=== PATIENT | female | born 1950 | race African-American/Black ===

== ENCOUNTER 2018-10-05 14:11 | Outpatient (CLI) | payer MEDICARE ==
[~2018-10-05] VITALS: Ht 165.1 cm; Wt 73.5 kg
[2018-10-05] MEDS ORDERED: NORVASC5 MG ORAL (16:01)
[2018-10-05] MEDS ORDERED: ELIQUIS5 MG PO (16:01)
--- NOTE | 2018-10-05 16:04 | GI Initial Consult Note ---
History of Present Illness General Date patient seen: Oct 05, 2018 Time patient seen: 15:59 Referring physician: PATI Reason for Consultation: Rectal bleeding Present Illness HPI This is a 68-year-old female patient presents today with complaint of occasional rectal bleeding for approximately 3 weeks. Denies any rectal pain. In addition, the patient states that she has occasional left-sided abdominal pain. Patient states that her last colonoscopy was performed in 2015, unsure of the results at this time. Denies any unintentional weight loss or changes in dietary habits. No signs of abuse or neglect. Patient is not fall risk. Home Meds Reported Medications Apixaban (ELIQUIS) 5 Mg Tablet, 5 MG PO, TAB 10/05/18 Amlodipine Besylate (Norvasc) 5 Mg Tablet, 5 MG ORAL DAILY, TAB 10/05/18 Allergies: Coded Allergies: Penicillins (Unverified Allergy, Severe, 10/05/18) Patient History History Provided By: Patient PM Narrative End-stage renal disease, Tuesday Hypertension Glaucoma Asthma Neck pain Atrial fibrillation past surgical history AV fistula placed in 2019 [facility] June 2018 at [facility] Social History: Reports: alcohol use - Occasional, other - Caffeine use Review of Systems All Other Systems: negative except mentioned in HPI Physical Exam Temperature 97.9 Blood pressure 124/60 Pulse 56 94% room air Height 5 5 Weight 162 pounds Sp02 EP Interpretation: reviewed, normal General Appearance: well appearing, no apparent distress, alert Head: normocephalic EENT: PERRL/EOMI, normal ENT inspection Neck: supple Respiratory: normal breath sounds, no respiratory distress Cardiovascular: normal rate Gastrointestinal: normal inspection, non tender, soft, normal bowel sounds, non -distended Rectal: deferred Genitourinary: no CVA tenderness Musculoskeletal: normal inspection, back normal Neurologic: normal inspection, alert, oriented x3, responsive Psychiatric: normal inspection, judgement/insight normal, memory normal Skin: normal inspection, normal color, no rash, warm/dry, palpation normal, well hydrated Lymphatic: normal inspection, no adenopathy GI: Plan Problems: (1) Hemorrhoids (2) End stage renal disease (3) Hypertension (4) Glaucoma (5) Asthma (6) Back pain (7) A-fib Plan EGD/colonoscopy to be scheduled Wednesday, October 10, 2018 patient is on Eliquis , must be discontinued for minimum 24 hours. - CLD & (Nulytely/Suprep/Movi-Prep) prep instructions given and acknowledged by patient. - NPO @ [place] day prior procedure explained. -The patient is on Eliquis, must be discontinued for approximately 24 hours prior procedure. Will follow with additional recs post procedure. Seen with Dr. Delcid. Thank you for this patient referral. The patient was seen and examined at bedside and all new and available data was reviewed in the patients chart. I agree with the above findings, impression and plan. (Patient seen earlier today. Signature stamp does not reflect patient encounter time.). - MD Elena Rodriguez,[facility] FINANCIAL INVESTMENT ADVISER Oct 05, 2018 16:04
[2018-10-05 16:30] VITALS: BP 124/60
--- NOTE | 2018-10-05 16:47 | NUR ---
Pt reported she fell on the ground between the parking lot and our building. mentioned she fell forward and put her both hand on the ground. denies any pain in joints or headache. As long as she recalls she did not lose any consciousness. no bruises found. Addendum: 10/05/18 at 1656 by RAMYA ANGELA Amended: Links added.
[2018-10-05] MEDS ORDERED: FUROSEMIDE80 M1 ORAL (17:01)
[2018-10-05] MEDS ORDERED: AMIODARONE HCL100 MG ORAL (17:01)
[2018-10-05] MEDS ORDERED: AMIODARONE HCL400 M1 ORAL (17:01)
[2018-10-05] MEDS ORDERED: NORVASC2.5 MG ORAL (17:01)
[2018-10-05] MEDS ORDERED: PROTONIX40 MG ORAL (17:01)
[2018-10-05] MEDS ORDERED: SPIRONOLACTONE25 MG ORAL (17:01)
[2018-10-05] MEDS ORDERED: AVAPRO150 MG ORAL (17:01)
[2018-10-05] MEDS ORDERED: GABAPENTIN300 MG ORAL (17:01)
[2018-10-05] MEDS ORDERED: ATORVASTATIN CA20 MG ORAL (17:01)
[2018-10-05] MEDS ORDERED: XARELTO10 MG ORAL (17:01)
[2018-10-05] MEDS ORDERED: ASPIRIN EC81 MG ORAL (17:01)
[2018-10-05] MEDS ORDERED: METFORMIN HCL1000 M1 ORAL (17:01)
== END 2018-10-05 16:11 | disposition home or self-care (01) ==
LOC: PAN 14:11
DX: K64.9 Unspecified hemorrhoids (principal); R10.9 Unspecified abdominal pain; I12.0 Hypertensive chronic kidney disease with stage 5 chronic kidney disease or end stage renal disease; N18.6 End stage renal disease; H40.9 Unspecified glaucoma; J45.909 Unspecified asthma, uncomplicated; M54.9 Dorsalgia, unspecified; I48.91 Unspecified atrial fibrillation

== ENCOUNTER 2018-10-10 09:52 | Day surgery (SDC) | payer MEDICARE ==
[2018-10-10] VITALS (8 sets, daily range): BP systolic 110–154; BP diastolic 52–61
[~2018-10-10] VITALS: Ht 165.1 cm; Wt 70.8 kg
[~2018-10-10 09:52] MED LIST: AMIODARONE HCL100 MG ORAL; AMIODARONE HCL400 M1 ORAL; ASPIRIN EC81 MG ORAL; ATORVASTATIN CA20 MG ORAL; AVAPRO150 MG ORAL; ELIQUIS5 MG PO; FUROSEMIDE80 M1 ORAL; GABAPENTIN300 MG ORAL; METFORMIN HCL1000 M1 ORAL; NORVASC2.5 MG ORAL; NORVASC5 MG ORAL; PROTONIX40 MG ORAL; SPIRONOLACTONE25 MG ORAL; XARELTO10 MG ORAL
[2018-10-10 10:49] LABS: BASOPHILS % (AUTO) 1.3 % (0.0-2.0); EOSINOPHILS % (AUTO) 0.9 % (0.0-3.0); HEMATOCRIT 46.4 % (37.0-47.0); HEMOGLOBIN 14.2 G/DL (12.0-16.0); LYMPHOCYTES % (AUTO) 21.4 % (20.0-45.0); MEAN CORPUSCULAR VOLUME 106 FL (80-99); MONOCYTES % (AUTO) 8.9 % (1.0-10.0); NEUTROPHILS % (AUTO) 67.5 % (45.0-75.0); PLATELET COUNT 130 K/UL (150-450); RED BLOOD COUNT 4.37 M/UL (4.20-5.40); RED CELL DISTRIBUTION WIDTH 13.4 % (11.6-14.8); WHITE BLOOD COUNT 5.4 K/UL (4.8-10.8)
[2018-10-10] MEDS ORDERED: DOK100 M1 PO (10:55)
[2018-10-10] MEDS ORDERED: INDAPAMIDE2.5 M1 PO (10:55)
[2018-10-10] MEDS ORDERED: VITAMIN C500 M1 ORAL (10:55)
[2018-10-10] MEDS ORDERED: VENTOLIN HFA18 GM INH (10:55)
[2018-10-10] MEDS ORDERED: SYMBICORT 16010.2 G1 IH (10:55)
[2018-10-10] MEDS ORDERED: LATANOPROST2.5 ML BOTH EYES (10:55)
[2018-10-10] MEDS ORDERED: VITAMIN D400 INTLU ORAL (10:55)
[2018-10-10] MEDS ORDERED: ELIQUIS2.5 MG PO (10:55)
[2018-10-10] MEDS ORDERED: MONTELUKAST SOD10 MG ORAL (10:55)
[2018-10-10] MEDS ORDERED: VITAMIN B-1100 MG ORAL (10:55)
[2018-10-10 11:14] LABS: INR 1.1 (0.9-1.1)
[2018-10-10] MEDS ORDERED: Atropine Inj 1mg/10ml Syr IV PRN (12:00)
[2018-10-10] MEDS ORDERED: DiphenhydrAMINE 50mg/ml Inj IVP PRN (12:00)
[2018-10-10] MEDS ORDERED: Midazolam 2mg/2ml Inj IVP PRN (12:00)
[2018-10-10] MEDS ORDERED: fentaNYL 100 mcg/2 mL IV PRN (12:00)
--- NOTE | 2018-10-10 12:01 | Pre-Procedure Note/Attestation ---
Pre-Procedure Note/Attestation Complete Prior to Procedure Planned Procedure: not applicable Procedure Narrative: colonoscopy Indications for Procedure Pre-Operative Diagnosis: screening Attestation I attest that I discussed the nature of the procedure; its benefits; risks and complications; and alternatives (and the risks and benefits of such alternatives ), prior to the procedure, with the patient (or the patient's legal energy conservation representative). I attest that, if there was a reasonable possibility of needing a blood transfusion, the patient (or the patient's legal energy conservation representative) was given the [facility] standardized written summary, pursuant to the [employer] Blood Safety Act ([place] Health and Safety Code # 1645, as amended). I attest that I re-evaluated the patient just prior to the surgery and that there has been no change in the patient's H&P, except as documented below: Mookie Delcid MD Oct 10, 2018 12:01
--- NOTE | 2018-10-10 12:02 | Short Stay Surgery H&P ---
History of Present Illness History of Present Illness Chief Complaint see recent office note HPI Ladan Faulkner is a 68 year old female who was admitted on for Abdominal Pain, Rectal Bleed Patient History Allergies: Coded Allergies: LATEX (Verified Allergy, Severe, 10/10/18) SHORTNESS OF BREATH PENICILLINS (Unverified Allergy, Severe, 10/10/18) RASH, SHORTNESS OF BREATH Medication History Scheduled Albuterol Sulfate (Ventolin Hfa), 2 PUFFS INH NEEDED, (Reported) Amiodarone Hcl (Amiodarone Hcl), 200 MG ORAL DAILY, (Reported) Amlodipine Besylate (Norvasc), 10 MG ORAL DAILY, (Reported) Apixaban (Eliquis), 2.5 MG PO BID, (Reported) Ascorbic Acid* (Vitamin C*), 500 MG ORAL DAILY, (Reported) Atorvastatin Calcium* (Atorvastatin Calcium*), 40 MG ORAL BEDTIME, (Reported) Budesonide/Formoterol Fumarate (Symbicort 160-4.5 Mcg Inhaler), 2 PUFF IH BID, ( Reported) Docusate Sodium (Dok), 100 MG PO NEEDED, (Reported) Indapamide (Indapamide), 2.5 MG PO DAILY, (Reported) Irbesartan* (Avapro*), 300 MG ORAL DAILY, (Reported) Latanoprost* (Xalatan*), 1 DROP BOTH EYES BEDTIME, (Reported) Montelukast Sodium* (Montelukast Sodium*), 10 MG ORAL DAILY, (Reported) Pantoprazole* (Protonix*), 40 MG ORAL DAILY, (Reported) Thiamine Hcl* (Vitamin B-1*), 100 MG ORAL DAILY, (Reported) Vitamin D (Vitamin D3), 200 UNITS ORAL DAILY, (Reported) Discontinued Medications Aspirin Ec* (Aspirin Ec*), 81 MG ORAL DAILY, (Reported) Discontinued Reason: Pt stopped taking med Furosemide* (Lasix*), 80 MG ORAL DAILY, (Reported) Discontinued Reason: Pt stopped taking med Gabapentin* (Gabapentin*), 300 MG ORAL BEDTIME, (Reported) Discontinued Reason: Pt stopped taking med Metformin Hcl* (Metformin Hcl*), 1,000 MG ORAL BID, (Reported) Discontinued Reason: Pt stopped taking med Rivaroxaban (Xarelto*), 10 MG ORAL DAILY, (Reported) Discontinued Reason: Pt stopped taking med Spironolactone* (Aldactone*), 25 MG ORAL DAILY, (Reported) Discontinued Reason: Pt stopped taking med Physical Exam Vital Signs Last Vital Signs Date Time Temp Pulse Resp B/P (MAP) Pulse Ox O2 Delivery O2 Flow Rate FiO2 10/10/18 10:44 Room Air 10/10/18 10:40 97.0 49 18 154/58 98 Labs Laboratory Tests Test 10/10/18 10:36 White Blood Count 5.4 K/UL (4.8-10.8) Red Blood Count 4.37 M/UL (4.20-5.40) Hemoglobin 14.2 G/DL (12.0-16.0) Hematocrit 46.4 % (37.0-47.0) Mean Corpuscular Volume 106 FL (80-99) H Mean Corpuscular Hemoglobin 32.5 PG (27.0-31.0) H Mean Corpuscular Hemoglobin Concent 30.7 G/DL (32.0-36.0) L Red Cell Distribution Width 13.4 % (11.6-14.8) Platelet Count 130 K/UL (150-450) L Mean Platelet Volume 7.9 FL (6.5-10.1) Neutrophils (%) (Auto) 67.5 % (45.0-75.0) Lymphocytes (%) (Auto) 21.4 % (20.0-45.0) Monocytes (%) (Auto) 8.9 % (1.0-10.0) Eosinophils (%) (Auto) 0.9 % (0.0-3.0) Basophils (%) (Auto) 1.3 % (0.0-2.0) Prothrombin Time 11.3 SEC (9.30-11.50) Prothromb Time International Ratio 1.1 (0.9-1.1) Activated Partial Thromboplast Time 29 SEC (23-33) Plan Attestation Are the patient's medical conditions optimized for surgery? Mookie Delcid MD Oct 10, 2018 12:02
--- NOTE | 2018-10-10 12:10 | Anethesia Preoperative Eval ---
Anesthesia Pre-op PMH/ROS General Date of Evaluation: Oct 10, 2018 Time of Evaluation: 11:30 Anesthesiologist: doreen ASA Score: ASA 4 Mallampati Score Class I : Soft palate, uvula, fauces, pillars visible Class II: Soft palate, uvula, fauces visible Class III: Soft palate, base of uvula visible Class IV: Only hard plate visible Mallampati Classification: Class II Surgeon: jefferson Diagnosis: abdominal pain/rectal bleed Surgical Procedure: colonoscopy Anesthesia History: none Social History: smoking - former Family History: no anesthesia problems Allergies: Coded Allergies: LATEX (Verified Allergy, Severe, 10/10/18) SHORTNESS OF BREATH PENICILLINS (Unverified Allergy, Severe, 10/10/18) RASH, SHORTNESS OF BREATH Medications: see eMAR Patient NPO?: Yes Past Medical History Cardiovascular: Reports: HTN, other - chf Pulmonary: Reports: asthma Gastrointestinal/Genitourinary: Reports: GERD, ESRD, other Endocrine: Reports: DM HEENT: Reports: glaucoma Hematology/Immune: Reports: other - anticoag tx Anesthesia Pre-op Phys. Exam Physician Exam Last Vital Signs Date Time Temp Pulse Resp B/P (MAP) Pulse Ox O2 Delivery O2 Flow Rate FiO2 10/10/18 10:44 Room Air 10/10/18 10:40 97.0 49 18 154/58 98 Constitutional: NAD Neurologic: CN 2-12 intact Cardiovascular: RRR Respiratory: CTA Gastrointestinal: S/NT/ND Airway Exam Mallampati Score: Class II MO: limited Neck: flexible TMD: 2fb ROM: limited Teeth: missing Anesthesia Pre-op A/P Labs Labs Test 10/10/18 10:36 10/10/18 12:15 White Blood Count 5.4 K/UL (4.8-10.8) Red Blood Count 4.37 M/UL (4.20-5.40) Hemoglobin 14.2 G/DL (12.0-16.0) Hematocrit 46.4 % (37.0-47.0) Mean Corpuscular Volume 106 FL (80-99) Mean Corpuscular Hemoglobin 32.5 PG (27.0-31.0) Mean Corpuscular Hemoglobin Concent 30.7 G/DL (32.0-36.0) Red Cell Distribution Width 13.4 % (11.6-14.8) Platelet Count 130 K/UL (150-450) Mean Platelet Volume 7.9 FL (6.5-10.1) Neutrophils (%) (Auto) 67.5 % (45.0-75.0) Lymphocytes (%) (Auto) 21.4 % (20.0-45.0) Monocytes (%) (Auto) 8.9 % (1.0-10.0) Eosinophils (%) (Auto) 0.9 % (0.0-3.0) Basophils (%) (Auto) 1.3 % (0.0-2.0) Prothrombin Time 11.3 SEC (9.30-11.50) Prothromb Time International Ratio 1.1 (0.9-1.1) Activated Partial Thromboplast Time 29 SEC (23-33) Sodium Level 138 MMOL/L (136-145) Potassium Level 5.6 MMOL/L (3.5-5.1) Chloride Level 105 MMOL/L (98-107) Carbon Dioxide Level 25 MMOL/L (21-32) Anion Gap 8 mmol/L (5-15) Blood Urea Nitrogen 29 mg/dL (7-18) Creatinine 3.1 MG/DL (0.55-1.30) Estimat Glomerular Filtration Rate 18.1 mL/min (>60) Glucose Level 74 MG/DL (74-106) Calcium Level 9.0 MG/DL (8.5-10.1) Studies Pre-op Studies: EKG - sinus bradycardia, possible anterior infarct Risk Assessment & Plan Assessment: asa4 Plan: mac Status Change Before Surgery: No Pre-Antibiotics Drug: Erlinda Valencia MD Oct 10, 2018 12:10
[2018-10-10 12:40] LABS: ANION GAP 8 mmol/L (5-15); BLOOD UREA NITROGEN 29 mg/dL (7-18); CARBON DIOXIDE 25 MMOL/L (21-32); CHLORIDE 105 MMOL/L (98-107); CREATININE 3.1 MG/DL (0.55-1.30); POTASSIUM 5.6 MMOL/L (3.5-5.1); SODIUM 138 MMOL/L (136-145)
[2018-10-10] MEDS ORDERED: Lidocaine 1% MPF 10mg/ml 5ml ONE (14:00)
[2018-10-10] MEDS ORDERED: Atropine Sulfate 0.4mg/ml inj ONE (14:00)
[2018-10-10] MEDS ORDERED: Propofol 200mg/20ml IV ONE (14:00)
[2018-10-10] MEDS ORDERED: D5 1/2NS 1000ml IV ONE (14:00)
--- NOTE | 2018-10-10 14:41 | Endoscopy Procedure Note ---
Endoscopy Procedure Note General Indication for Procedure: screening Procedures Performed: colonoscopy Operative Findings/Diagnosis: 5 polyps Specimen: yes Pt Tolerated Procedure Well: Yes Estimated Blood Loss: none Anesthesia Anesthesiologist: papa small Anesthesia: MAC Inserted Devices Implant(s) used?: No Quality Quality of Bowel Preparation: Good Did scope reach the cecum?: Yes Was there any complications?: No GI Core Measures 50 yrs or older w/o bx or poly: No 10yrs. F/U not recommended: Yes If not recommended, why?: Above average risk 10 yrs. F/U needed: Yes 18 years or older w/prev. colo: No Mookie Delcid MD Oct 10, 2018 14:41
--- NOTE | 2018-10-10 18:15 | Procedure Note ---
DATE OF PROCEDURE: 10/10/2018 SURGEON: Mookie Delcid M.D. PROCEDURE: Colonoscopy with snare polypectomy and biopsy. ANESTHESIOLOGIST: Per Dr. Yung. INSTRUMENT: Olympus adult flexible colonoscope. INDICATION: Screening colonoscopy. REASON FOR PROCEDURE: The procedure, risks, benefits, and possible consequences, including hemorrhage, aspiration, perforation and infection, and alternative treatments, were explained to the patient/legal guardian by Dr. Mookie Delcid and the patient/legal guardian understood and accepted these risks. DESCRIPTION OF PROCEDURE: After informed consent was obtained and the patient was adequately sedated, first rectal exam was performed, which was positive for internal hemorrhoid. Then, the scope was advanced from rectum into the cecum documented by appendiceal orifice, ileocecal valve, and right upper quadrant palpation. Quality of prep was good except for some semisolid material throughout the colon. I would say about 5% of the colonic mucosa was not fully examined given this prep. This was a challenging procedure. Passing the scope to the sigmoid was difficult given the severe diverticulosis. With some manipulation, we were able to get through. The patient had 5 polyps, one in the cecum, three in transverse, and one in the sigmoid. The one in the cecum, one in transverse, and one in the sigmoid were removed with the cold snare polypectomy technique. The other two removed with the cold biopsy forceps technique. The patient had significant diverticulosis especially in the left colon and some scattered diverticula in the right colon. The patient also had evidence of internal hemorrhoids on retroflexion of the rectum. The patient tolerated procedure very well without any complication. SUMMARY OF FINDINGS: 1. Five colonic polyps removed, see above for details. 2. Diverticulosis. 3. Internal hemorrhoid. RECOMMENDATIONS: 1. Follow up biopsy results and treat accordingly. 2. We will recommend repeat colonoscopy in three years given five polyps. I want to thank, Dr. Navarro for this kind referral. Mookie Delcid M.D. DR: SUMA JOB#: [id number] CC: Kortney Navarro M.D.; Fax#: [phone]
--- NOTE | 2018-10-10 18:28 | Immediate Post-Op Evaluation ---
Immediate Post-Op Evalulation Immediate Post-Op Evalulation Procedure: colonoscopy w/bx Date of Evaluation: Oct 10, 2018 Time of Evaluation: 14:57 IV Fluids: d5/0.45 25ml 350ml 0.9ns Blood Products: none Estimated Blood Loss: negligible Blood Pressure Systolic: 110 Blood Pressure Diastolic: 53 Pulse Rate: 57 Respiratory Rate: 18 O2 Sat by Pulse Oximetry: 100 Temperature (Fahrenheit): 97.6 Pain Score (1-10): 0 Nausea: No Vomiting: No Complications none Patient Status: awake, reacts, patent Hydration Status: adequate Drug: Erlinda Valencia MD Oct 10, 2018 18:28
--- NOTE | 2018-10-10 18:29 | 48 Hour Post Anesthesia Eval ---
Post Anesthesia Evaluation Procedure: colonoscopy w/bx Date of Evaluation: Oct 10, 2018 Time of Evaluation: 14:59 Blood Pressure Systolic: 127 0: 59 Pulse Rate: 55 Respiratory Rate: 18 Temperature (Fahrenheit): 97.6 O2 Sat by Pulse Oximetry: 100 Airway: patent Nausea: No Vomiting: No Pain Intensity: 0 Hydration Status: adequate Cardiopulmonary Status: stable Mental Status/LOC: patient returned to baseline Post-Anesthesia Complications: none Follow-up care needed: N/A Erlinda Castrejon MD Oct 10, 2018 18:29
== END 2018-10-10 15:50 | disposition home or self-care (01) ==
LOC: GAS 09:52
DX: Z12.11 Encounter for screening for malignant neoplasm of colon (principal); D12.0 Benign neoplasm of cecum; D12.3 Benign neoplasm of transverse colon; K63.5 Polyp of colon; K64.8 Other hemorrhoids; K57.30 Diverticulosis of large intestine without perforation or abscess without bleeding; E11.22 Type 2 diabetes mellitus with diabetic chronic kidney disease; I13.2 Hypertensive heart and chronic kidney disease with heart failure and with stage 5 chronic kidney disease, or end stage renal disease; I50.9 Heart failure, unspecified; N18.6 End stage renal disease; K21.9 Gastro-esophageal reflux disease without esophagitis; H40.9 Unspecified glaucoma; Z88.0 Allergy status to penicillin; Z91.040 Latex allergy status
CPT/HCPCS: 36415; 45380; 45385; 80048; 82962; 85025; 85610; 85730; 93005; J0461; J2704; 94003; 94150

== ENCOUNTER 2018-10-24 10:57 | Outpatient (CLI) | payer MEDICARE ==
[~2018-10-24 10:57] MED LIST changes: +DOK100 M1 PO; +ELIQUIS2.5 MG PO; +INDAPAMIDE2.5 M1 PO; +LATANOPROST2.5 ML BOTH EYES; +MONTELUKAST SOD10 MG ORAL; +SYMBICORT 16010.2 G1 IH; +VENTOLIN HFA18 GM INH; +VITAMIN B-1100 MG ORAL; +VITAMIN C500 M1 ORAL; +VITAMIN D400 INTLU ORAL
[2018-10-24 13:42] VITALS: BP 124/62
--- NOTE | 2018-10-26 14:20 | General Progress Note ---
Assessment/Plan Problem List: (1) MULTIPLE COLON POLYPS (2) Diverticulosis ICD Codes: K57.90 - Diverticulosis of intestine, part unspecified, without perforation or abscess without bleeding SNOMED: 45908724 (3) End stage renal disease ICD Codes: N18.6 - End stage renal disease SNOMED: 30556324 (4) Back pain ICD Codes: M54.9 - Dorsalgia, unspecified SNOMED: 467350393 (5) A-fib ICD Codes: I48.91 - Unspecified atrial fibrillation SNOMED: 85806166 (6) Glaucoma ICD Codes: H40.9 - Unspecified glaucoma SNOMED: 44659128 (7) Hemorrhoids ICD Codes: K64.9 - Unspecified hemorrhoids SNOMED: 11408067 (8) Hypertension ICD Codes: I10 - Essential (primary) hypertension SNOMED: 10161205 (9) Asthma ICD Codes: J45.909 - Unspecified asthma, uncomplicated SNOMED: 913523241 Assessment/Plan REPEAT COLONOSCOPY IN 3 YEARS Subjective ROS Limited/Unobtainable: Yes Allergies: Coded Allergies: LATEX (Verified Allergy, Severe, 10/10/18) SHORTNESS OF BREATH PENICILLINS (Unverified Allergy, Severe, 10/10/18) RASH, SHORTNESS OF BREATH Objective General Appearance: alert EENT: normal ENT inspection Neck: supple Cardiovascular: normal rate Respiratory/Chest: lungs clear Abdomen: hypoactive bowel sounds Extremities: non-tender Mookie Delcid MD Oct 26, 2018 14:20
== END 2018-10-24 11:27 | disposition home or self-care (01) ==
LOC: PAN 10:57
DX: K57.90 Diverticulosis of intestine, part unspecified, without perforation or abscess without bleeding (principal); I12.0 Hypertensive chronic kidney disease with stage 5 chronic kidney disease or end stage renal disease; N18.6 End stage renal disease; M54.9 Dorsalgia, unspecified; I48.91 Unspecified atrial fibrillation; H40.9 Unspecified glaucoma; K64.9 Unspecified hemorrhoids; J45.909 Unspecified asthma, uncomplicated; Z88.0 Allergy status to penicillin; Z91.040 Latex allergy status
CPT/HCPCS: 99212